=== PATIENT | female | born 1940 | race Caucasian/White ===

== ENCOUNTER 2017-03-05 16:26 | Inpatient (IN) ==
[2017-03-05 16:48] LABS: ABG PH 7.396 (7.35-7.45)
[2017-03-05 16:48] LABS: BASOPHILS # (AUTO) 0.1 K/uL (0-0.2); BASOPHILS % (AUTO) 0.2 % (0.0-3.0); HEMATOCRIT 37.8 % (37.0-47.0); HEMOGLOBIN 11.8 g/dl (12.0-16.0); LYMPHOCYTES # (AUTO) 0.6 K/uL (0.60-3.4); LYMPHOCYTES % (AUTO) 2.8 (10.0-50.0); MEAN CORPUSCULAR HEMOGLOBIN 28.4 pg (27.0-31.0); MEAN CORPUSCULAR HGB CONC 31.2 (31.8-35.4); MEAN CORPUSCULAR VOLUME 91.1 fl (81.0-99.0); MONOCYTES # (AUTO) 0.8 K/uL (0.4-2.0); MONOCYTES % (AUTO) 4.2 (0-10); NEUTROPHILS # (AUTO) 18.3 K/ul (2.0-6.9); NEUTROPHILS % (AUTO) 90.8; PLATELET COUNT 332 10^3/uL (140-440); RED BLOOD COUNT 4.15 10^6/ul (4.20-5.40); WHITE BLOOD COUNT 20.17 K/ul (4.6-10.2)
[2017-03-05 16:49] LABS: ABG BASE EXCESS 11 (-2.0-2.0); ABG HCO3 35.7 (22.0-26.0); ABG PCO2 58.1 mmHg (35-45); ABG TCO2 37 (22.0-28.0)
[2017-03-05 17:25] LABS: ACETAMINOPHEN < 3 ug/ml (10-30); ALANINE AMINOTRANSFERASE 64 U/L (12-78); ALBUMIN 2.2 g/dL (3.4-5.0); ALBUMIN/GLOBULIN RATIO 0.56; ALKALINE PHOSPHATASE 190 U/L (53-141); ANION GAP 13.4; ASPARTATE AMINO TRANSFERASE 32 U/L (15-37); BLOOD UREA NITROGEN 36 mg/dL (7-18); BUN/CREATININE RATIO 52.94; CALCIUM 10.4 mg/dL (8.2-10.2); CARBON DIOXIDE 31 mmol/L (23-31); CHLORIDE 104 mmol/L (98-107); CREATININE 0.68 mg/dL (0.60-1.30); GLUCOSE 174 mg/dL (82-115); POTASSIUM 4.4 mmol/L (3.5-5.10); SALICYLATE < 5.0 mg/dL (2.8-20.0); SODIUM 144 mmol/L (136-145); TOTAL PROTEIN 6.1 g/dL (5.8-8.1)
[2017-03-05] MEDS ORDERED: ALBUTEROL 0.083% NEB NEB STA (17:31)
--- NOTE | 2017-03-05 17:32 | DI ---
Exam: Chest two-view History: Shortness breath FINDINGS: No prior study for comparison. Complete opacification of the left hemithorax. The right lung is hyperexpanded but otherwise clear. No acute chest wall abnormalities are seen. Clips in the left axilla and breast. Impression: Complete left chest opacification.
--- NOTE | 2017-03-05 17:59 | ED.PDOC ---
General ED Provider: Dr. DOROTEO BUCKNER JR Chief Complaint: Altered Mental Status Stated Complaint: cp=sent from [facility] due to altered mental status--reports that pt has been very anxious today--blood pressure has been elevated at 164/92--hx behavioral problems-is scheduled to be admitted at [facility] at 1830-- resp shallow and labored --no distress noted[End]98.5 131 28 73 146/95 Time Seen by Physician: 17:59 Mode of Arrival: Stretcher Information Source: [facility], EMT Exam Limitations: Clinical condition Nursing and Triage Documentation Reviewed and Agree: Yes Review of Systems - Review Of Systems Constitutional: Reports: Malaise Eyes: Reports: Other Ears, Nose, Mouth, Throat: Reports: No symptoms Respiratory: Reports: Other Cardiac: Reports: Other GI: Reports: Other : Reports: Other Musculoskeletal: Reports: Other Skin: Reports: Other Neurological: Reports: Cognitive dysfunction Endocrine: Reports: Other Hematologic/Lymphatic: Reports: Other All Other Systems: Other Past Medical History - Past Medical History Previously Healthy: Yes Endocrine: Reports: Unknown Cardiovascular: Reports: Hypertension Respiratory: Reports: None Hematological: Reports: None Gastrointestinal: Reports: None Genitourinary: Reports: None Neuro/Psych: Reports: Anxiety, Bipolar Disorder, Dementia (dementia/behavioral disorder) Musculoskeletal: Reports: Arthritis Cancer: Reports: Breast (1985) Last Menstrual Period: menopause - Surgical History General Surgical History: Reports: Other - Family History Family History: Reports: Cancer - Social History Smoking Status: Unknown if ever smoked Hx Substance Use: No Alcohol Screening: None Physical Exam - Physical Exam Appearance: Ill-appearing Ill-appearing: Moderate Eyes: TI, EOMI, Conjunctiva clear ENT: Ears normal, Nose normal, Oropharynx normal Neck: Supple Respiratory: Breath sounds diminished Cardiovascular: RRR GI/: Soft, Nontender Musculoskeletal: Limited ROM Skin: Warm, Dry, Normal color Neurological: Disoriented Interpretation - Radiology Interpretation Radiology Interpretation By: Radiologist Radiology Results: Positive Exam Interpreted: CXR (cxr left side opacified clips in ax and breast) Radiology Interpretation By: Radiologist Radiology Results: Positive Exam Interpreted: CT Scan (left sided mass(note says right) bronchial obstruction effusion concerning for neoplasm) Re-Evaluation - Re-Evaluation Time of Re-Evaluation: 19:24 Status: Improved (SON CALLS BACK INFORMED CLOUDINESS LEFT LUNG, NIOTE HX CA TX PNEUMONIA-PT IS DNR) Physician Notification - Case Discussed Physician Notified: raman Time of Notification: 18:00 (ct- DR TAYLOR WILL COMMUNICATE RESULTS) Critical Care Note - Critical Care Note Total Time (mins): 40 Course - Course Hematology/Chemistry: 03/05/17 16:45 03/05/17 16:45 Orders, Labs, Meds: Lab Review 03/05/17 03/05/17 03/05/17 16:30 16:45 16:45 WBC 20.17 H RBC 4.15 L Hgb 11.8 L Hct 37.8 MCV 91.1 MCH 28.4 MCHC 31.2 L RDW Coeff of Neto 13.8 Plt Count 332 Immature Gran % (Auto) 2.0 Neut % (Auto) 90.8 Lymph % (Auto) 2.8 L [place] % (Auto) 4.2 Eos % (Auto) 0.0 Baso % (Auto) 0.2 Immature Gran # (Auto) 0.4 Neut # 18.3 H Lymph # 0.6 [place] # 0.8 Eos # 0.0 Baso # 0.1 D-Dimer (Manual) Puncture Site Rr O2 Saturation 76.0 L ABG pH 7.396 ABG pCO2 58.1 H ABG pO2 42.0 L* ABG HCO3 35.7 H ABG Total CO2 37 H ABG Base Excess 11 H Sunil Test + FiO2 % 21.0 Sodium 144 Potassium 4.4 Chloride 104 Carbon Dioxide 31 Anion Gap 13.4 BUN 36 H Creatinine 0.68 Estimated GFR (MDRD) 84.00 BUN/Creatinine Ratio 52.94 Glucose 174 H Calcium 10.4 H Total Bilirubin 0.30 AST 32 ALT 64 Alkaline Phosphatase 190 H Total Protein 6.1 Albumin 2.2 L Globulin 3.9 Albumin/Globulin Ratio 0.56 TSH 0.013 L Salicylate Level mg/dL < 5.0 Acetaminophen < 3 L Plasma/Serum Alcohol < 10.0 03/05/17 16:45 WBC RBC Hgb Hct MCV MCH MCHC RDW Coeff of Neto Plt Count Immature Gran % (Auto) Neut % (Auto) Lymph % (Auto) [place] % (Auto) Eos % (Auto) Baso % (Auto) Immature Gran # (Auto) Neut # Lymph # [place] # Eos # Baso # D-Dimer (Manual) 3673.56 Puncture Site O2 Saturation ABG pH ABG pCO2 ABG pO2 ABG HCO3 ABG Total CO2 ABG Base Excess Sunil Test FiO2 % Sodium Potassium Chloride Carbon Dioxide Anion Gap BUN Creatinine Estimated GFR (MDRD) BUN/Creatinine Ratio Glucose Calcium Total Bilirubin AST ALT Alkaline Phosphatase Total Protein Albumin Globulin Albumin/Globulin Ratio TSH Salicylate Level mg/dL Acetaminophen Plasma/Serum Alcohol Orders Category Date Time Status ADMIT PATIENT INPATIENT .TO [facility] (MONITORED BED) ADMISSION 03/05/17 18: 55 Active ABG DRAW REQUEST Stat CARDIO 03/05/17 16:31 Completed EKG-(ED ONLY) Stat CARDIO 03/05/17 16:29 Completed EKG-(IP & OP ONLY) DAILY CARDIO 03/06/17 06:00 Ordered EKG-(IP & OP ONLY) DAILY CARDIO 03/07/17 06:00 Ordered NEBULIZER TREATMENT Routine CARDIO 03/05/17 17:31 Ordered NEBULIZER TREATMENT Stat CARDIO 03/05/17 17:31 Completed OXYGEN Routine CARDIO 03/05/17 18:57 Ordered ACTIVITY .Early Mobilization for VTE Prevention CARE 03/05/17 18:55 Active INTAKE & OUTPUT Q8HR CARE 03/05/17 18:55 Active TELEMETRY MONITORING TELE CARE 03/05/17 18:56 Active VITAL SIGNS Q4HR CARE 03/05/17 18:55 Active REGULAR DIET DIETARY 03/05/17 Dinner Ordered ED APPLY O2 .ONCE EMERGENCY 03/05/17 16:30 Active ED TUBE PUSHER APPLIED ONCE EMERGENCY 03/05/17 16:29 Active ABG Stat LAB 03/05/17 16:30 Completed ACETAMINOPHEN Stat LAB 03/05/17 16:45 Completed BLOOD ALCOHOL Stat LAB 03/05/17 16:45 Completed BLOOD CULTURE Stat LAB 03/05/17 18:40 Received CBC W/ AUTO DIFF DAILY@0600 LAB 03/06/17 06:00 Ordered CBC W/ AUTO DIFF DAILY@0600 LAB 03/07/17 06:00 Ordered CBC W/ AUTO DIFF Stat LAB 03/05/17 16:45 Completed COMPREHENSIVE METABOLIC PANEL DAILY@0600 LAB 03/06/17 06:00 Ordered COMPREHENSIVE METABOLIC PANEL DAILY@0600 LAB 03/07/17 06:00 Ordered COMPREHENSIVE METABOLIC PANEL Stat LAB 03/05/17 16:45 Completed CREATINE KINASE Q8H LAB 03/06/17 01:00 Ordered CREATINE KINASE Q8H LAB 03/06/17 09:00 Ordered D-DIMER Stat LAB 03/05/17 16:45 Completed DRUG SCREEN, URINE, RAPID Stat LAB 03/05/17 16:29 Ordered SALICYLATE Stat LAB 03/05/17 16:45 Completed SPUTUM CULTURE Stat LAB 03/05/17 18:05 Uncollected THYROID STIMULATING HORMONE Stat LAB 03/05/17 16:45 Completed TROPONIN I Q8H LAB 03/06/17 01:00 Ordered TROPONIN I Q8H LAB 03/06/17 09:00 Ordered URINALYSIS C & S IF INDICATED Stat LAB 03/05/17 16:29 Uncollected Acetaminophen [Tylenol] MEDS 03/05/17 18:55 Ordered 650 mg PO Q4H PRN Albuterol Sulfate 0.083% Neb [Albuterol 0.083% Neb] MEDS 03/05/17 17:31 Discontinued 1 vial NEB ONCE STA Albuterol Sulfate 0.083% Neb [Albuterol 0.083% Neb] MEDS 03/05/17 20:00 Ordered 1 vial NEB RTQID Alprazolam [Xanax] MEDS 03/05/17 21:00 Ordered 0.25 mg PO BID Alprazolam [Xanax] MEDS 03/05/17 18:46 Ordered 0.25 mg PO DAILY PRN Alprazolam [Xanax] MEDS 03/06/17 09:00 Ordered 0.5 mg PO DAILY Atenolol [Tenormin] MEDS 03/06/17 09:00 Ordered 50 mg PO DAILY Bisacodyl [Dulcolax] MEDS 03/05/17 18:46 Ordered 10 mg RC DAILY PRN Calcium Carbonate [Tums Ultra] MEDS 03/05/17 18:46 Ordered 500 mg PO Q8HR PRN Ceftriaxone Sodium [Rocephin] MEDS 03/05/17 18:46 Discontinued 1 gm .ROUTE .STK-MED ONE Ceftriaxone Sodium [Rocephin] 1 gm MEDS 03/05/17 18:04 Discontinued 0.9 % Sodium Chloride [Sodium Chloride] 50 ml IV ONCE Clonazepam [Klonopin] MEDS 03/05/17 21:00 Ordered 0.5 mg PO BID Cyanocobalamin (Vitamin B-12) [B-12] MEDS 03/07/17 09:00 Ordered 1,000 mcg PO EVERY OTHER DAY Docusate Sodium [Colace] MEDS 03/05/17 21:00 Ordered 100 mg PO BID Gabapentin [Neurontin] MEDS 03/05/17 21:00 Ordered 200 mg PO TID Lamotrigine [Lamictal] MEDS 03/05/17 21:00 Ordered 75 mg PO BID Latanoprost [Xalatan] MEDS 03/05/17 21:00 Ordered 1 drop OP BEDTIME Loperamide HCl [Imodium] MEDS 03/05/17 18:46 Ordered 2 mg PO DAILY PRN Melatonin [Melatonin] MEDS 03/05/17 21:00 Ordered 5 mg PO BEDTIME Olanzapine [Zyprexa] MEDS 03/05/17 21:00 Ordered 5 mg PO BID Polyvinyl Alcohol [Artificial Tears Opth Mari] MEDS 03/05/17 18:46 Ordered 1 drop OP PRN PRN Sennosides/Docusate Sodium [Senokot-S Tablet] MEDS 03/05/17 18:46 Ordered 1 each PO DAILY PRN RESUSCITATION STATUS Routine OTHERS 03/05/17 18:55 Ordered CHEST, 2 VIEWS PA & LAT Stat RADS 03/05/17 16:[address] CHEST W/O CONTRAST Stat RADS 03/05/17 18:05 Completed Medications Generic Name Dose Route Start Last Admin Trade Name Freq PRN Reason Stop Dose Admin Acetaminophen 650 mg 03/05/17 18:55 Tylenol PO Q4H PRN Mild Pain Albuterol Sulfate 1 vial 03/05/17 20:00 Albuterol 0.083% Neb NEB RTQID BLANCO Alprazolam 0.5 mg 03/06/17 09:00 Xanax PO DAILY BLANCO Alprazolam 0.25 mg 03/05/17 21:00 Xanax PO BID BLANCO Alprazolam 0.25 mg 03/05/17 18:46 Xanax PO DAILY PRN Anxiety Artificial Tears 1 drop 03/05/17 18:46 Artificial Tears Opth Mari OP PRN PRN Dry Eye Atenolol 50 mg 03/06/17 09:00 Tenormin PO DAILY BLANCO Bisacodyl 10 mg 03/05/17 18:46 Dulcolax RC DAILY PRN Constipation Clonazepam 0.5 mg 03/05/17 21:00 Klonopin PO BID BLANCO Docusate Sodium 100 mg 03/05/17 21:00 Colace PO BID [facility] Gabapentin 200 mg 03/05/17 21:00 Neurontin PO TID BLANCO Lamotrigine 75 mg 03/05/17 21:00 Lamictal PO BID [facility] Latanoprost 1 drop 03/05/17 21:00 Xalatan OP BEDTIME BLANCO Loperamide HCl 2 mg 03/05/17 18:46 Imodium PO DAILY PRN Diarrhea Non-Formulary Medication 500 mg 03/05/17 18:46 Calcium Carbonate [Tums Ultra] PO Q8HR PRN Heartburn Non-Formulary Medication 1,000 mcg 03/07/17 09:00 Cyanocobalamin (Vitamin B-12) [B-12] PO EVERY OTHER DAY BLANCO Non-Formulary Medication 5 mg 03/05/17 21:00 Melatonin [Melatonin] PO BEDTIME BLANCO Non-Formulary Medication 5 mg 03/05/17 21:00 Olanzapine [Zyprexa] PO BID BLANCO Non-Formulary Medication 1 each 03/05/17 18:46 Sennosides/Docusate Sodium [Senokot-S Tablet] PO DAILY PRN Constipation Discontinued Medications Generic Name Dose Route Start Last Admin Trade Name Freq PRN Reason Stop Dose Admin Albuterol Sulfate 1 vial 03/05/17 17:31 03/05/17 17:45 Albuterol 0.083% Neb NEB 03/05/17 17:32 1 vial ONCE STA Administration Ceftriaxone Sodium 1 gm/ 50 mls @ 75 mls/hr 03/05/17 18:04 03/05/17 18:50 Sodium Chloride IV 03/05/17 18:43 75 mls/hr ONCE STA Administration Vital Signs: Temp Pulse Resp BP Pulse Ox 03/05/17 16:26 98.5 F 131 H 28 H 146/95 H 73 L Departure - Departure Time of Disposition: 19:33 Disposition: ADMITTED INPATIENT Discharge Problem: Altered mental status Pneumonia Qualifiers: Pneumonia type: due to unspecified organism Laterality: left Lung location: unspecified part of lung Qualified Code(s): J18.9 - Pneumonia, unspecified organism Instructions: Pneumonia (ED) Condition: Stable Pt referred to PMD for follow-up: Yes (admit dr taylor) Allergies/Adverse Reactions: Allergies chlordiazepoxide [From Librium] Adverse Reaction (Verified 03/05/17 16:38) Home Medications: Ambulatory Orders Acetaminophen 650 mg PO Q4HR PRN 03/05/17 Albuterol Sulfate [Ventolin Hfa] 2 puff IH Q6HR PRN 03/05/17 Alprazolam [Xanax] 0.25 mg PO BID 03/05/17 Alprazolam [Xanax] 0.25 mg PO DAILY PRN 03/05/17 Alprazolam [Xanax] 0.5 mg PO DAILY 03/05/17 Atenolol 50 mg PO DAILY 03/05/17 Bisacodyl 10 mg RC DAILY PRN 03/05/17 Calcium Carbonate [Tums Ultra] 500 mg PO Q8HR PRN 03/05/17 Clonazepam [Klonopin] 0.5 mg PO BID 03/05/17 Cyanocobalamin (Vitamin B-12) [B-12] 1,000 mcg PO EVERY OTHER DAY 03/05/17 Docusate Sodium [Dok] 100 mg PO BID 03/05/17 Gabapentin 200 mg PO TID 03/05/17 Lamotrigine [Lamictal] 75 mg PO BID 03/05/17 Latanoprost [Xalatan] 1 drop OP BEDTIME 03/05/17 Loperamide HCl [Imodium] 2 mg PO DAILY PRN 03/05/17 Melatonin 5 mg PO BEDTIME 03/05/17 Olanzapine [Zyprexa] 5 mg PO BID 03/05/17 Polyvinyl Alcohol [Artificial Tears Opth Mari] 1 drop OP PRN PRN 03/05/17 Sennosides/Docusate Sodium [Senokot-S Tablet] 1 each PO DAILY PRN 03/05/17
[2017-03-05] MEDS ORDERED: ZITHROMAX 500 MG in SODIUM CHLORIDE 250 ML IV STA (18:04)
[2017-03-05] MEDS ORDERED: ROCEPHIN 1 GM in SODIUM CHLORIDE 50 ML IV STA (18:04)
--- NOTE | 2017-03-05 18:38 | CT ---
EXAM: CT of the chest with contrast History: Left lung opacification. Comparison: Chest radiograph 03/05/2017 Technique: Multiplanar CT images through the thorax were obtained without the administration of IV c ontrast Findings: Heart size is normal. No pericardial effusion. Postsurgical changes seen within the left axilla and left lateral breast with surgical clips. Evaluation for mediastinal and hilar lymph node s is limited due to lack of contrast administration. No pneumothorax. No consolidations seen within the right lung. Trace right pleural effusion. Large left pleural effusion. Right perihilar lung ma ss is ill defined measuring about 11.5 cm x 8.3 cm. There is compressive atelectasis also seen withi n the left lung related to the pleural effusion. There is occlusion of the distal left mainstem bronc hus. The 1.4 cm mediastinal lymph node. 2.2 cm possible left pleural nodule versus artifact or pleu ral fluid hemorrhage. The left pleural effusion is bulging inferiorly and has a inverted the hemidiap hragm. There is trace perisplenic fluid. 2.3 cm indeterminate left adrenal nodule. Status post cho lecystectomy. No acute osseous abnormalities. Impression: 1. Left perihilar mass suspicious for malignancy. 2. Complete occlusion of the left mainstem bronchus. 3. Large left pleural effusion. 4. Enlarged pretracheal mediastinal lymph node. 5. Left lower lobe pleural-based nodule is suspected. 6. Indeterminate left adrenal nodule. This could be benign or malignant.
[2017-03-05] MEDS ORDERED: ROCEPHIN ONE (18:46)
[2017-03-05] MEDS ORDERED: CALCIUM CARBONATE 500 MG PO PRN (18:46)
[2017-03-05] MEDS ORDERED: DULCOLAX RC PRN (18:46)
[2017-03-05] MEDS ORDERED: NON-FORMULARY MEDICATION (Sennosides/Docusate Sodium [Senokot-S Tablet] 1 EACH) PO PRN (18:46)
[2017-03-05] MEDS ORDERED: ARTIFICIAL TEARS OPTH SOL OP PRN (18:46)
[2017-03-05] MEDS ORDERED: IMODIUM PO PRN (18:46)
[2017-03-05] MEDS ORDERED: TYLENOL PO PRN (18:55)
[2017-03-05] MEDS ORDERED: NON-FORMULARY MEDICATION (Melatonin [Melatonin] 5 MG) PO SCH (21:00)
[2017-03-05] MEDS ORDERED: NON-FORMULARY MEDICATION (Olanzapine [Zyprexa] 5 MG) PO SCH ×22 (21:00)
[2017-03-05] MEDS: ALBUTEROL 0.083% NEB NEB SCH (21:06)
[2017-03-05 21:13] VITALS: BMI 27.5
[2017-03-05] MEDS ORDERED: ZYPREXA ONE (22:27)
[2017-03-05] MEDS ORDERED: XANAX ONE (22:27)
[2017-03-05] MEDS: KLONOPIN PO SCH (22:38)
[2017-03-05] MEDS: XALATAN OP SCH (22:38)
[2017-03-05] MEDS: LAMICTAL PO SCH (22:42)
[2017-03-05] MEDS: NEURONTIN PO SCH (22:42)
[2017-03-05] MEDS: COLACE PO SCH (22:42)
[2017-03-05] MEDS: XANAX PO SCH (22:46)
[2017-03-06 01:46] LABS: ALBUMIN 2.2 g/dL (3.4-5.0); ALBUMIN/GLOBULIN RATIO 0.54; ANION GAP 12.9; BILIRUBIN,TOTAL 0.2 mg/dL (0.00-1.20); BUN/CREATININE RATIO 54.92; CALCIUM 10.6 mg/dL (8.2-10.2); CREATININE 0.71 mg/dL (0.60-1.30); POTASSIUM 4.9 mmol/L (3.5-5.10); TOTAL PROTEIN 6.3 g/dL (5.8-8.1)
[2017-03-06 01:54] LABS: TROPONIN I 0.031 ng/ml (0.0000-0.4000)
[2017-03-06 01:55] LABS: BASOPHILS # (AUTO) 0.1 K/uL (0-0.2); BASOPHILS % (AUTO) 0.3 % (0.0-3.0); HEMATOCRIT 40.7 % (37.0-47.0); HEMOGLOBIN 12.2 g/dl (12.0-16.0); IMMATURE GRANULOCYTE % (AUTO) 2.5 % (0.0-5.0); LYMPHOCYTES # (AUTO) 1.1 K/uL (0.60-3.4); LYMPHOCYTES % (AUTO) 5.1 (10.0-50.0); MEAN CORPUSCULAR HEMOGLOBIN 28.2 pg (27.0-31.0); MEAN CORPUSCULAR VOLUME 94.2 fl (81.0-99.0); MONOCYTES # (AUTO) 1.3 K/uL (0.4-2.0); NEUTROPHILS # (AUTO) 18.4 K/ul (2.0-6.9); NEUTROPHILS % (AUTO) 86.1; PLATELET COUNT 334 10^3/uL (140-440); RED BLOOD COUNT 4.32 10^6/ul (4.20-5.40); WHITE BLOOD COUNT 21.38 K/ul (4.6-10.2)
[2017-03-06] MEDS: ALBUTEROL 0.083% NEB NEB SCH (05:06)
[2017-03-06] MEDS ORDERED: SENNA PO PRN (07:30)
[2017-03-06] MEDS ORDERED: XANAX PO SCH (09:00)
[2017-03-06] MEDS: ROCEPHIN 1 GM in SODIUM CHLORIDE 50 ML IV SCH (09:05)
[2017-03-06 09:10] LABS: TROPONIN I 0.026 ng/ml (0.0000-0.4000)
[2017-03-06] MEDS: XANAX PO SCH ×3 (09:27→23:36)
[2017-03-06] MEDS: KLONOPIN PO SCH ×2 (09:27→20:15)
[2017-03-06] MEDS: ZYPREXA PO SCH ×3 (09:28→20:49)
[2017-03-06] MEDS: COLACE PO SCH ×2 (10:32→20:18)
[2017-03-06] MEDS: LAMICTAL PO SCH ×3 (10:33→20:15)
[2017-03-06] MEDS: NEURONTIN PO SCH ×3 (10:33→20:17)
[2017-03-06] MEDS: TENORMIN PO SCH ×2 (10:34→17:00)
[2017-03-06] MEDS: ZESTRIL PO SCH ×2 (10:34→17:00)
[2017-03-06] MEDS: SOLU-MEDROL 40 MG IVP SCH ×3 (10:38→20:10)
[2017-03-06] MEDS: XOPENEX 1.25 MG NEB SCH ×3 (11:07→23:17)
[2017-03-06] MEDS ORDERED: XOPENEX 0.63 MG NEB SCH (12:00)
--- NOTE | 2017-03-06 16:57 | CT ---
EXAM: CT Abdomen without contrast. CT Pelvis without contrast. HISTORY: Abdominal pain. Left lung mass. COMPARISON: Chest CT 1 day prior. TECHNIQUE: Multiple axial images of the abdomen and pelvis were obtained without intravenous contras t. Images were reformatted in the coronal plane. FINDINGS: Please note that evaluation of the abdominal and pelvic structures is limited due to lack of intravenous contrast. Mass-like consolidation within the visualized left lung base noted along with partially loculated lef t pleural effusion. Trace amount right pleural fluid is present. Degenerative changes present in the spine. Old right obturator ring fractures noted. Probable heman gioma in the L3 vertebral body. Degenerative changes present in the spine. 1.6 x 1.2 cm fluid density left hepatic lobe lesion on axial image 16 is present. Gallbladder is abs ent. The pancreas, spleen, and right adrenal gland demonstrate normal contour. There is enlargement of the left adrenal gland which is not well characterized. High-density foci are seen within both r enal cortices which may represent complicated cysts. No hydronephrosis identified. Urinary bladder is distended but without localized abnormality. Uterus demonstrates normal contour. The bowel is normal in course and caliber without evidence for obstruction or inflammatory process. Colonic diverticulosis noted. No free fluid or free air identified. Atherosclerotic calcifications are present. IMPRESSION: 1. Distended urinary bladder. Correlate for outlet obstruction. 2. Nonspecific left adrenal gland enlargement which requires followup based on pulmonary findings. 3. Probable hepatic cyst and complicated renal cysts. 4. Partial visualization of large left lung mass and left pleural effusion.
[2017-03-06] MEDS: XANAX PO PRN (17:01)
[2017-03-06] MEDS: LOVENOX SUBCUT SCH (17:02)
[2017-03-06] MEDS: XALATAN OP SCH (20:09)
[2017-03-06] MEDS: NON-FORMULARY MEDICATION (Melatonin [Melatonin] 5 MG) PO SCH (20:48)
[2017-03-07] MEDS: XANAX PO PRN (01:38)
[2017-03-07] MEDS: XOPENEX 1.25 MG NEB SCH ×4 (05:00→22:05)
[2017-03-07 05:06] LABS: BASOPHILS % (AUTO) 0.2 % (0.0-3.0); HEMATOCRIT 36.6 % (37.0-47.0); HEMOGLOBIN 10.8 g/dl (12.0-16.0); IMMATURE GRANULOCYTE % (AUTO) 1.2 % (0.0-5.0); LYMPHOCYTES # (AUTO) 0.4 K/uL (0.60-3.4); LYMPHOCYTES % (AUTO) 2.5 (10.0-50.0); MEAN CORPUSCULAR HEMOGLOBIN 27.9 pg (27.0-31.0); MEAN CORPUSCULAR HGB CONC 29.5 (31.8-35.4); MEAN CORPUSCULAR VOLUME 94.6 fl (81.0-99.0); MONOCYTES # (AUTO) 0.7 K/uL (0.4-2.0); NEUTROPHILS # (AUTO) 15.9 K/ul (2.0-6.9); NEUTROPHILS % (AUTO) 92.1; PLATELET COUNT 298 10^3/uL (140-440); RED BLOOD COUNT 3.87 10^6/ul (4.20-5.40)
[2017-03-07] MEDS: SOLU-MEDROL 40 MG IVP SCH ×3 (05:25→20:21)
[2017-03-07 05:37] LABS: ALBUMIN 2.1 g/dL (3.4-5.0); ALBUMIN/GLOBULIN RATIO 0.57; ANION GAP 11.7; BILIRUBIN,TOTAL 0.23 mg/dL (0.00-1.20); CALCIUM 10.6 mg/dL (8.2-10.2); POTASSIUM 4.7 mmol/L (3.5-5.10); TOTAL PROTEIN 5.8 g/dL (5.8-8.1)
[2017-03-07] MEDS ORDERED: NON-FORMULARY MEDICATION (Cyanocobalamin (Vitamin B-12) [B-12] 1,000 MCG) PO SCH (09:00)
[2017-03-07] MEDS: XANAX PO SCH ×2 (09:22)
[2017-03-07] MEDS: KLONOPIN PO SCH ×2 (09:22→20:20)
[2017-03-07] MEDS: TENORMIN PO SCH (09:27)
[2017-03-07] MEDS: NEURONTIN PO SCH ×3 (09:27→20:20)
[2017-03-07] MEDS: COLACE PO SCH ×2 (09:27→20:20)
[2017-03-07] MEDS: ZESTRIL PO SCH (09:27)
[2017-03-07] MEDS: LAMICTAL PO SCH ×2 (09:27→20:20)
[2017-03-07] MEDS: ZYPREXA PO SCH ×2 (09:28→20:20)
[2017-03-07] MEDS: LOVENOX SUBCUT SCH (09:28)
[2017-03-07] MEDS: ROCEPHIN 1 GM in SODIUM CHLORIDE 50 ML IV SCH (09:30)
--- NOTE | 2017-03-07 10:20 | HP ---
DATE OF SERVICE: 03/05/17 CHIEF COMPLAINT: Shortness of breath and hypoxemia HISTORY OF PRESENT ILLNESS: This is a 76 year old female who is a [facility] resident been having some shortness of breath and change in mental status and acting funny. Saturation has been dropping to 70. Blood pressure was 164/92. At that time the patient was actually was planned to schedule for [facility] but because of the saturation drop the patient was sent to [facility] for change in mental status and hypoxemia. She was evaluated there by Dr. Chen. WBC 20,000, D- dimer 3673, ABG showed the pH 7.396, pCO2 58.1, pO2 42, glucose was 174. Chest x -ray showed some haziness in the right lung so he asked for CAT scan of the chest which showed the left perihilar mass suspicious for malignancy, complete occlusion of the left mainstem bronchus, Large left pleural effusion, enlarged pretracheal mediastinal lymph nodes, left lower lobe pleural-based nodule and indeterminate left adrenal nodule. At that time the patient was admitted to the [facility] for left lower lobe pneumonia, new onset lung cancer, lung cancer of the cancer, acute respiratory failure, elevated D-dimer and change in mental status. REVIEW OF SYSTEMS: CONSTITUTIONAL: No fever, no chills. Weakness and tiredness. HEENT: Normal. ENDOCRINE: No weight gain; no weight loss. CVS: No chest pain. No PND, no orthopnea. No shortness of breath. No PND, no orthopnea. RESPIRATORY: Coughing and congestion. No hemoptysis. Shortness of breath. Palpitation. GI: No nausea, no vomiting. No abdominal pain. No melena. : No hematuria. No polyuria. MUSCULOSKELETAL: No joint swelling. PSYCHIATRIC: Anxiety episodes. No depression. No suicidal thoughts. No homicidal thoughts. Change in mental status. SKIN: Intact, no open lesions. PAST MEDICAL HISTORY: History of pneumonia History of breath cancer, surgery in 1984 Depression Anxiety disorder Chronic constipation Peripheral neuropathy Vitamin B12 deficiency PAST SURGICAL HISTORY: Appendectomy Cataract removal PERSONAL HISTORY: [facility] and completely dependant upon the ADL's Family history is significant for the CHF and Diabetes. MEDICATIONS: Zyprexa Tylenol Ventolin Bisacodyl Cyanocobalamin Docusate Neurontin Imodium Xalatan Melatonin Artificial tears Calcium Xanax Atenolol Clonazepam Lomotil Alprazolam ALLERGIES: Librium PHYSICAL EXAMINATION: V/S: blood pressure 146/95, respiratory rate 28, heart rate 131, saturation 73 on 2 liters and temperature 98.5. HEENT: Atraumatic, normocephalic. No scleral icterus. Mucosa dry. Sick looking lady laying in the bed in tachycardia and tachypnea. NECK: Supple. No JVD, no bruit. No lymphadenopathy. No thyromegaly. HEART: Sinus tachycardia. S1, S2 normal. No murmur. No cyanosis or clubbing. No ascites. LUNGS: Decreased and basilar crackles. No rales or rhonchi. ABDOMEN: Soft, nontender. Bowel sounds are active. No CVA tenderness. No rigidity or guarding. EXTREMITIES: No cyanosis, clubbing or pedal edema. MUSCULOSKELETAL: Normal joints, no swelling. NEUROLOGIC: The patient responses to the verbal stimuli. Awake and alert. SKIN: Intact; no open lesions. LYMPHATIC: No lymph nodes palpable. LABS: Sodium 144, potassium 4.4, Chloride 104, bicarb 31, BUN 36, creatinine 0.68, glucose 174. WBC 20.17, hgb 11.8, hct 37.8, plt count 333, d-dimer 3673, ABG pH 7.396, pCO2 58.1, pO2 42. Toxicology came positive for Tylenol < 3. ASSESSMENT: 1. Left lower lobe pneumonia 2. Pleural effusion 3. Left lung mass mostly lung cancer 4. Acute respiratory failure 5. Change in mental status 6. History of depression and anxiety with behavioral changes. PLAN: 1. Admit patient to the regular floor 2. CBC and CMP today and daily 3. Cardiac enzymes and troponin 4. IV fluids 5. Rocephin 1 gram daily 6. DUO NEBS 7. Solu-Medrol 8. Daily I&O's TIME SPENT: MORE THAN 70 minutes. Critical care time. [facility]
--- NOTE | 2017-03-07 10:25 | PN ---
DATE OF SERVICE: 03/06/17 SUBJECTIVE: The patient with admitted with acute respiratory failure and shortness of breath. The patient got Ativan and Xanax at night. The patient is sleeping at this time. Tried to wake her up and she was groggy and goes back to sleep. REVIEW OF SYSTEMS: CONSTITUTIONAL: No fever, no chills. HEENT: Normal. ENDOCRINE: No weight gain, no weight loss. CVS: No angina symptoms. No CHF symptoms. No palpitations. No atypical chest pain for CAD. No shortness of breath. No PND, no orthopnea. RESPIRATORY: No cough, no hemoptysis. GI: No nausea, no vomiting. No abdominal pain. : No hematuria. No polyuria. MUSCULOSKELETAL:. No joint swelling. PSYCHIATRIC: Not anxious. No depression. No suicidal thoughts. No homicidal thoughts. SKIN: Intact. No rash. PHYSICAL EXAMINATION: V/S: Blood pressure 144/79, respiratory rate 20, heart rate 124,saturation is 92 on 3 liters and temperature 98.3. HEENT: Normocephalic, atraumatic. Mucosa dry. Pallor positive. No icterus. NECK: Supple. No JVD, no carotid bruit. No lymphadenopathy. LUNGS: Decreased and basilar crackles. No rales or rhonchi. HEART: Sinus tachycardia. S1, S2 normal. No S3. No murmur, gallop or regurgitation. ABDOMEN: Soft, nontender. Bowel sounds active. No rigidity. No rebound or guarding. No CVA tenderness. EXTREMITIES: No clubbing, cyanosis or pedal edema. MUSCULOSKELETAL: No joint swelling. NEUROLOGIC: Awake, alert, oriented times three. No focal deficit. LYMPHATIC: No lymph nodes palpable. SKIN: Intact. LABS: Sodium 144, potassium 4.9, chloride 103, bicarb 33, BUN 39, creatinine 0.71, WBC 21.38, hgb 12.2, hct 40.7, plt count 334 ASSESSMENT: 1. Left lower lobe pneumonia 2. Acute respiratory failure 3. Change in mental status 4. Left lung mass most likely tumor 5. Depression 6. Anxiety 7. Behavioral changes PLAN: 1. Will do U/A 2. Continue Rocephin and breathing treatment 3. Stop the Albuterol and start the patient on the Xopenex 4. Lung mass and lung cancer been discussed POOR PROGNOSIS BEEN DISCUSSED. TIME SPENT: More than 35 minutes MTDD
[2017-03-07] MEDS: XALATAN OP SCH (20:21)
[2017-03-07] MEDS: NON-FORMULARY MEDICATION (Melatonin [Melatonin] 5 MG) PO SCH (20:26)
[2017-03-08] MEDS: XOPENEX 1.25 MG NEB SCH ×3 (05:09→17:15)
[2017-03-08] MEDS: SOLU-MEDROL 40 MG IVP SCH ×3 (05:24→20:39)
[2017-03-08 07:45] LABS: BILIRUBIN,URINE Negative (NEGATIVE); KETONES,URINE Negative (NEGATIVE); LEUKOCYTE ESTERASE ,URINE Negative (NEGATIVE); NITRITE,URINE Negative (NEGATIVE); PH,URINE 5.5 (5-9); PROTEIN,URINE Negative (NEGATIVE); URINE, BLOOD 2+ (NEGATIVE)
[2017-03-08 07:51] LABS: ADD URINE MICROSCOPIC YES
[2017-03-08] MEDS: ZYPREXA PO SCH ×2 (08:59→20:42)
[2017-03-08] MEDS: ZESTRIL PO SCH (08:59)
[2017-03-08] MEDS: LAMICTAL PO SCH ×2 (08:59→20:41)
[2017-03-08] MEDS: ROCEPHIN 1 GM in SODIUM CHLORIDE 50 ML IV SCH (08:59)
[2017-03-08] MEDS: KLONOPIN PO SCH ×2 (08:59→20:41)
[2017-03-08] MEDS: LOVENOX SUBCUT SCH (08:59)
[2017-03-08] MEDS: NEURONTIN PO SCH ×3 (09:00→20:42)
[2017-03-08] MEDS: TENORMIN PO SCH (09:00)
[2017-03-08] MEDS: COLACE PO SCH ×2 (09:00→20:40)
[2017-03-08] MEDS ORDERED: TYLENOL RC STA (18:20)
[2017-03-08] MEDS ORDERED: LASIX IVP STA (18:20)
[2017-03-08] MEDS ORDERED: SODIUM CHLORIDE 1,000 ML IV SCH (18:30)
[2017-03-08] MEDS: ZOSYN 3.375 GM 3.375 GM in SODIUM CHLORIDE 100 ML IV SCH ×2 (18:33→23:37)
[2017-03-08] MEDS: MORPHINE 2 MG/ML SYRINGE IVP PRN (18:33)
[2017-03-08] MEDS: XALATAN OP SCH (20:39)
[2017-03-08] MEDS: NON-FORMULARY MEDICATION (Melatonin [Melatonin] 5 MG) PO SCH (20:42)
[2017-03-08] MEDS: ALBUTEROL 0.083% NEB NEB SCH (21:55)
[2017-03-09] MEDS: ALBUTEROL 0.083% NEB NEB SCH ×2 (02:00→05:08)
[2017-03-09 05:21] VITALS: BP 151/80; TEMP 97.5
[2017-03-09] MEDS: ZOSYN 3.375 GM 3.375 GM in SODIUM CHLORIDE 100 ML IV SCH (05:21)
[2017-03-09] MEDS: SOLU-MEDROL 40 MG IVP SCH (05:21)
[2017-03-09] MEDS: MORPHINE 2 MG/ML SYRINGE IVP PRN (05:22)
--- NOTE | 2017-03-11 15:26 | DS ---
DATE OF SERVICE: 03/09/17 FINAL DIAGNOSIS: 1. Cardiopulmonary arrest 2. Left sided lung mass with severe pleural effusion and mediastinal shift. 3. Post obstruction pneumonia 4. Respiratory distress 5. History of breast cancer 6. Depression 7. Anxiety 8. Constipation 9. Peripheral neuropathy PLAN: Body being released to the [facility] DIET: None ACTIVITY: None DISEASE SPECIFIC EDUCATION: None HOME MEDICATIONS: None HOSPITAL COURSE: Darya Dia 76 year old female came to the emergency room with shortness of breath, breathing difficulty and cough. Saturation was 73 on the room air, respiratory rate 28, heart rate 131. Dr. Chen saw the patient. Chest x-ray showed the left sided haziness so we did a CAT scan of the chest which showed a 11x8cm mass with compression on the primary bronchus with pleural effusion and suspicious for the malignancy and pneumonia. The patient was admitted to the hospital as patient is an DNR. Started on the IV antibiotics, breathing treatment and Morphine was given which did help the patient. The patient settling down by next day. Her respiratory rate when down to 20's and 18's. Breathing treatments were given very much groggy so Xanax was stopped and Klonopin was stopped to make patient more awake and alert. Meanwhile the patient 's son came discussed the diagnosis that the patient has a lung cancer with pleural effusion and the mediastinal shift, only days to month is left at the given time. Over the night the patient got distressed and . Finally ER physician Dr. Freeman and pronounced the patient as . TIME SPENT: MORE THAN 70 MINUTES MTDD
--- NOTE | 2017-03-12 11:27 | PN ---
DATE OF SERVICE: 03/08/17 SUBJECTIVE: The patient admitted with acute respiratory failure. The patient is still in somewhat respiratory distress. A little bit more awake and alert but still has the confusion. She doesn't know where she is. She says that she wants to get down and walk. The patient's son is coming today to discuss the patient's prognosis and condition. REVIEW OF SYSTEMS: CONSTITUTIONAL: No fever, no chills. HEENT: Normal. ENDOCRINE: No weight gain, no weight loss. CVS: No angina symptoms. No CHF symptoms. No palpitations. No atypical chest pain for CAD. Shortness of breath. No PND, no orthopnea. RESPIRATORY: Cough and congestion, no hemoptysis. GI: No nausea, no vomiting. No abdominal pain. : No hematuria. No polyuria. MUSCULOSKELETAL:. No joint swelling. PSYCHIATRIC: Not anxious. No depression. No suicidal thoughts. No homicidal thoughts. SKIN: Intact. No rash. PHYSICAL EXAMINATION: V/S: blood pressure 158/88, respiratory rate 20, heart rate 85, temperature 98.9 , saturation 97% on 5 liters. HEENT: Normocephalic, atraumatic. Mucosa dry. Pallor positive. No icterus. NECK: Supple. No JVD, no carotid bruit. No lymphadenopathy. LUNGS: Decreased entry left side. Minimal entry with wheezing on the right side and decreased basilar crackles. No rales or rhonchi. HEART: S1, S2 normal. No S3. No murmur, gallop or regurgitation. ABDOMEN: Soft, nontender. Bowel sounds active. No rigidity. No rebound or guarding. No CVA tenderness. EXTREMITIES: No clubbing, cyanosis. 1+edema. MUSCULOSKELETAL: No joint swelling. NEUROLOGIC: Awake, alert. No focal deficit. LYMPHATIC: No lymph nodes palpable. SKIN: Intact. LABS: Not obtained today; labs from yesterday: Sodium 145, potassium 4.97, chloride 102, bicarb 36, BUN 59, creatinine 1.0, WBC 17.20, hgb 10.8, hct 36.6, plt count 298. ASSESSMENT: 1. Acute respiratory failure 2. 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 Pneumonia 4. Pleural effusion 5. Depression 6. Anxiety 7. Anemia PLAN: 1. Rocephin 2. DUO NEBS 3. Morphine 4. Will discuss with the son in detail Will follow the patient in daily rounds. TIME SPENT: More than 35 minutes [email or web address]
--- NOTE | 2017-03-12 13:07 | PN ---
DATE OF SERVICE: 03/06/17 SUBJECTIVE: The patient was admitted with respiratory distress, left sided lung mass. The patient is still not complete awake alert. REVIEW OF SYSTEMS: CONSTITUTIONAL: No fever, no chills. HEENT: Normal. ENDOCRINE: No weight gain, no weight loss. CVS: No angina symptoms. No CHF symptoms. No palpitations. No atypical chest pain for CAD. Shortness of breath. No PND, no orthopnea. RESPIRATORY: Cough and congestion, no hemoptysis. GI: No nausea, no vomiting. No abdominal pain. : No hematuria. No polyuria. MUSCULOSKELETAL:. No joint swelling. PSYCHIATRIC: Not anxious. No depression. No suicidal thoughts. No homicidal thoughts. SKIN: Intact. No rash. PHYSICAL EXAMINATION: V/S: Blood pressure 104/61, respiratory rate 20, heart rate 97, temperature 97.8 with saturation 90% on 3 liters. HEENT: Normocephalic, atraumatic. Mucosa dry. Pallor positive. No icterus. NECK: Supple. No JVD, no carotid bruit. No lymphadenopathy. LUNGS: Decreased and basilar crackles. Defused wheezing. In mild respiratory distress. No rales or rhonchi. HEART: S1, S2 normal. No S3. No murmur, gallop or regurgitation. ABDOMEN: Soft, nontender. Bowel sounds active. No rigidity. No rebound or guarding. No CVA tenderness. EXTREMITIES: No clubbing, cyanosis.1+ edema. MUSCULOSKELETAL: No joint swelling. NEUROLOGIC: Awake and alert but not oriented to time, place and person. No focal deficit. LYMPHATIC: No lymph nodes palpable. SKIN: Intact. LABS: WBC 21.38, hgb 12.2, hct 40.7, plt count 334, sodium 144, potassium 4.9, chloride 103, bicarb 33, BUN 39, creatinine 0.71 and glucose 211 ASSESSMENT: 1. Acute respiratory failure 2. Acute hypoxemic respiratory failure 3. Left lower lobe pneumonia with pleural effusion 4. Left lung mass, most consistent with tumor 5. History of breast cancer 6. Anxiety 7. Depression PLAN: 1. Continue Rocephin, breathing treatments 2. Will do CT abdomen and pelvis 3. IV fluids 4. Morphine TIME SPENT: More than 35 minutes MTDD
== END 2017-03-09 10:15 | disposition expired | DRG 296 ==
LOC: ED 16:26 → MEDSURG B 19:29
PROVIDERS: ADMIT Emergency Medicine; ATTEND Emergency Medicine
DX: I46.9 Cardiac arrest, cause unspecified (principal); J18.9 Pneumonia, unspecified organism; J90 Pleural effusion, not elsewhere classified; C34.92 Malignant neoplasm of unspecified part of left bronchus or lung; R41.82 Altered mental status, unspecified; F41.9 Anxiety disorder, unspecified; R06.02 Shortness of breath; I10 Essential (primary) hypertension; R06.03 Acute respiratory distress; R06.4 Hyperventilation; F41.8 Other specified anxiety disorders; K59.00 Constipation, unspecified; G62.9 Polyneuropathy, unspecified; Z85.3 Personal history of malignant neoplasm of breast; Z79.899 Other long term (current) drug therapy
CPT/HCPCS: 36415; 80053; 80307; 81001; 82550; 82803; 84443; 84484; 85025; 85379; 87040; 87070; 87081; 87186; 93005; 93010; 94640; 96365; 99284